=== PATIENT | female | born 1960 | race Caucasian/White ===

== ENCOUNTER 2023-06-03 19:21 | Emergency (ER) | payer MEDICARE ==
[~2023-06-03] VITALS: Ht 165.1 cm; Wt 74.8 kg
[~2023-06-03 19:21] MED LIST: PRILOSEC20 MG PO; TRAZODONE HCL100 MG PO; WELLBUTRIN XL300 MG PO
[2023-06-03] MEDS ORDERED: CEPHALEXIN500 M1 PO (20:17)
[2023-06-03] MEDS ORDERED: HYDROCODON-ACE1 EA10 PO (20:18)
[2023-06-03] MEDS ORDERED: TRAMADOL HCL50 MG PO (20:46)
[2023-06-03 21:29] VITALS: BP 130/79
== END 2023-06-03 21:30 | disposition home or self-care (01) ==
LOC: ED 19:21
DX: S66.922A Laceration of unspecified muscle, fascia and tendon at wrist and hand level, left hand, initial encounter (principal); S61.512A Laceration without foreign body of left wrist, initial encounter; S51.831A Puncture wound without foreign body of right forearm, initial encounter; W25.XXXA Contact with sharp glass, initial encounter; Z79.899 Other long term (current) drug therapy; Z23 Encounter for immunization
CPT/HCPCS: 90715; 99282; A9270